=== PATIENT | female | born 1985 | race Caucasian/White ===

== ENCOUNTER 2016-10-28 20:10 | Emergency (ER) | payer BC ==
--- NOTE | 2016-10-28 20:35 | ER Document Report ---
ED Medical Screen (RME) - General Chief Complaint: Leg Pain Stated Complaint: LEFT CALF SWELLING Time Seen by Provider: 10/28/16 20:32 Notes: The patient is a 31-year-old female, past medical history LLE DVT 8 months ago, presents with increasing left calf pain and left buttocks pain that started yesterday. She said that the pain from her prior DVT started the same way. She was on a 6 month course of Xarelto and stopped it about 2 months ago after a negative DVT ultrasound. She started working out this week, but is not having any other muscular pain. Denies shortness of breath, chest pain, numbness, tingling or difficulty walking. PE: Left calf tenderness, strong pulses, tenderness over left SI joint I have greeted and performed a rapid initial assessment of this patient. A comprehensive ED assessment and evaluation of the patient, analysis of test results and completion of the medical decision making process will be conducted by additional ED providers. TRAVEL OUTSIDE OF THE [place] IN LAST 30 DAYS: No - Related Data Allergies/Adverse Reactions: No Known Allergies Allergy (Unverified 01/28/14 13:24) Past Medical History Renal/ Medical History: Denies: Hx Peritoneal Dialysis Psychiatric Medical History: Reports: Hx Depression Past Surgical History: Reports: Hx Appendectomy, Hx Section - Immunizations Hx Diphtheria, Pertussis, Tetanus Vaccination: Yes Physical Exam - Vital signs Vitals: Temp Pulse Resp BP Pulse Ox 98.3 F 53 L 18 109/82 98 10/28/16 20:15 10/28/16 20:15 10/28/16 20:15 10/28/16 20:15 10/28/16 20:15 Course - Vital Signs Vital signs: Temp Pulse Resp BP Pulse Ox 98.3 F 53 L 18 109/82 98 10/28/16 20:15 10/28/16 20:15 10/28/16 20:15 10/28/16 20:15 10/28/16 20:15
--- NOTE | 2016-10-28 20:50 | ER Document Report ---
ED Extremity Problem, Lower - General Chief Complaint: Leg Pain Stated Complaint: LEFT CALF SWELLING Time Seen by Provider: 10/28/16 20:32 Mode of Arrival: Ambulatory Information source: Patient Notes: This is a 31-year-old female with a history of left lower extremity DVT that just finished Xarelto 2 months ago (she had been treated for 6 months). Patient presents to the emergency room with left calf pain. She does state she' s been working out a lot lately. She states that she has had some left buttock pain. She denies any chest pain, shortness of breath, fever or chills. She denies any smoking or control. She denies any family history of blood clots. She denies any recent travel, trauma, long car rides. Past medical history: DVT (diagnosed February 2016 and treated with 6 months of Xarelto). The patient's risk factors at that time was control pills. Patient states that she was tested by Dr. Pierre for blood clotting and she did not have any predisposition to blood clotting. TRAVEL OUTSIDE OF THE [place] IN LAST 30 DAYS: No - HPI Patient complains to provider of: No: Altered sensation, Injury, Pain, Swelling , Other Location: Leg Occurred: Last week Where: Home Onset/Duration: Gradual Quality of pain: Dull Severity: Mild Pain Level: 1 Context: denies: Barefoot, Burn, Crush, Direct blow, Fell, Laceration, Prolonged pressure on ext, Recent immobilization, Recent surgery, Recent travel , Stubbed, Twisted, Wearing shoes, Other Recent injury: Yes - Patient has been having a new exercise routine lately: She is doing "boot camp" and spin classes. Associated symptoms: denies: Chest pain, Hurts to breath, Sweaty Exacerbated by: Nothing Relieved by: Nothing - Related Data Allergies/Adverse Reactions: No Known Allergies Allergy (Unverified 01/28/14 13:24) Past Medical History - General Information source: Patient - Social History Smoking Status: Never Smoker Cigarette use (# per day): No Chew tobacco use (# tins/day): No Frequency of alcohol use: None Drug Abuse: None Lives with: Family Family History: Reviewed & Not Pertinent Patient has suicidal ideation: No Patient has homicidal ideation: No - Past Medical History Cardiac Medical History: Reports: Hx DVT Pulmonary Medical History: Reports: None EENT Medical History: Reports: None Neurological Medical History: Reports: None Endocrine Medical History: Reports: None Renal/ Medical History: Reports: None. Denies: Hx Peritoneal Dialysis Malignancy Medical History: Reports: None GI Medical History: Reports: None Musculoskeltal Medical History: Reports None Skin Medical History: Reports None Psychiatric Medical History: Reports: Hx Depression Past Surgical History: Reports: Hx Appendectomy, Hx Section - Immunizations Hx Diphtheria, Pertussis, Tetanus Vaccination: Yes Review of Systems - Review of Systems Constitutional: denies: Chills, Fever EENT: No symptoms reported Cardiovascular: No symptoms reported Respiratory: No symptoms reported Gastrointestinal: No symptoms reported Genitourinary: No symptoms reported Female Genitourinary: No symptoms reported Musculoskeletal: See HPI Skin: No symptoms reported Hematologic/Lymphatic: No symptoms reported Neurological/Psychological: No symptoms reported Physical Exam - Vital signs Vitals: Temp Pulse Resp BP Pulse Ox 98.3 F 53 L 18 109/82 98 10/28/16 20:15 10/28/16 20:15 10/28/16 20:15 10/28/16 20:15 10/28/16 20:15 Notes: Physical exam: GENERAL: 31-year-old female, alert and oriented 3, no acute distress HEAD: Atraumatic, normocephalic. EYES: Pupils equal round and reactive to light, extraocular movements intact, sclera anicteric, conjunctiva are normal. ENT: Moist mucous membranes. NECK: Normal range of motion, supple LUNGS: Breath sounds clear to auscultation bilaterally and equal. No wheezes rales or rhonchi. HEART: Regular rate and rhythm without murmurs, rubs or gallops. ABDOMEN: Soft, normoactive bowel sounds. No tenderness to palpation. No guarding, no rebound. No masses appreciated. EXTREMITIES: Normal range of motion, no pitting or edema. No clubbing or cyanosis. NEUROLOGICAL: Cranial nerves II through XII grossly intact. Normal speech, normal gait. PSYCH: Normal mood, normal affect. SKIN: Warm, Dry, normal turgor, no rashes or lesions noted. Course - Re-evaluation Re-evalutation: 10/28/16 22:55 10/28/16 22:56 Patient is doing well right now. I have discussed the results of the ultrasound. She has recently started a rigorous exercise program and she does have symptoms of radiculopathy. She does have some pain in the left buttocks and it seems to run down the left lower extremity. I've advised her to back off the "Boot Camp" and to rest for a few days. I've advised her to return to the ER if she has persistent or worsening pain for repeat ultrasound. - Vital Signs Vital signs: Temp Pulse Resp BP Pulse Ox 98.3 F 53 L 18 109/82 98 10/28/16 20:15 10/28/16 20:15 10/28/16 20:15 10/28/16 20:15 10/28/16 20:15 - Diagnostic Test Radiology reviewed: Image reviewed, Reports reviewed - Venous Doppler shows no evidence of acute DVT Discharge - Discharge Clinical Impression: radiculopathy Condition: Stable Disposition: HOME, SELF-CARE Additional Instructions: I placed the results of the Doppler exam in the discharge summary Recommendations: For an anti-inflammatory medicine: I would first take aspirin the see if you get any relief. You could then try Tylenol if the aspirin doesn't work for pain. As we discussed, you had studies looking for blood clotting and you don't have it which is good, and ibuprofen medicines are probably okay. However, there is some association with ibuprofen-like medicines (nonsteroidal anti-inflammatory medicines) that suggests that the incidence of blood clotting is higher with these medicines. So he could try the aspirin and Tylenol first. If you're having increased swelling of the lower leg, increased pain in the lower leg: Return to the emergency room for repeat ultrasound. Sometimes, we do repeat the ultrasound and the leg to see if there is any clot propagation ( the ultrasound will sometimes miss small clots in the lower calf). Return to the ER for any chest pain or shortness of breath. There are no restrictions on activity at this time. As far as working out: I would back off on [employer] for now and start back slowly.
[2016-10-28 23:07] VITALS: BP 108/65
== END 2016-10-28 23:07 | disposition home or self-care (01) ==
LOC: ER 20:10
DX: M54.10 Radiculopathy, site unspecified (principal); M79.662 Pain in left lower leg; M25.552 Pain in left hip; Z86.718 Personal history of other venous thrombosis and embolism
CPT/HCPCS: 93971; 99283

== ENCOUNTER → 2017-09-07 | Outpatient (CLI) | payer BC ==
--- NOTE | 2017-09-07 10:18 | RADIOLOGY REPORT (SQ) ---
EXAM DESCRIPTION: VENOUS UNILATERAL LOWER COMPLETED DATE/TIME: 09/07/2017 9:24 am REASON FOR STUDY: LLE PAIN M79.609 PAIN IN UNSPECIFIED LIMB COMPARISON: 10/28/2016 TECHNIQUE: Dynamic and static yu scale and color images acquired of the left leg venous system. Se lected spectral images acquired with additional compression and augmentation maneuvers. The contralat eral common femoral vein and saphenofemoral junction were also imaged. Images stored on PACS. LIMITATIONS: None. FINDINGS: LEFT COMMON FEMORAL: Normal phasicity, compression and augmentation. No visualized echogenic material on g ray scale. No defects on color images. FEMORAL: Normal compression and augmentation. No visualized echogenic material on yu scale. No defe cts on color images. POPLITEAL: Normal compression, augmentation. No visualized echogenic material on yu scale. No defec ts on color images. CALF VESSELS: Normal compression, augmentation. No visualized echogenic material on yu scale. No de fects on color images. GSV and SSV: Normal compression, augmentation. No visualized echogenic material on yu scale. No def ects on color images. ANY DEEP VENOUS INSUFFICIENCY: Not evaluated. ANY EVIDENCE OF POPLITEAL CYST: No. OTHER: No other significant finding. RIGHT COMMON FEMORAL VEIN AND SAPHENOFEMORAL JUNCTION: Normal phasicity, compression and augmentation. No visualized echogenic material on yu scale. No de fects on color images. IMPRESSION: NO EVIDENCE OF DVT OR SVT IN THE LEFT LEG. TECHNICAL DOCUMENTATION: JOB ID: [id number] [employer]- All Rights Reserved Reading location - IP/workstation name: [email or web address]
== END ==
LOC: SP 08:39
PROVIDERS: ATTEND Physician Assistant Medical
DX: M79.605 Pain in left leg (principal); M79.89 Other specified soft tissue disorders
CPT/HCPCS: 93971

== ENCOUNTER 2018-02-18 18:32 | Emergency (ER) | payer BC ==
[2018-02-18 19:45] VITALS: BP 114/71
--- NOTE | 2018-02-18 19:49 | ER Document Report ---
ED General - General Chief Complaint: Leg Pain Stated Complaint: LEG PAIN Time Seen by Provider: 02/18/18 18:54 TRAVEL OUTSIDE OF THE [place] IN LAST 30 DAYS: No - HPI Patient complains to provider of: Left leg pain Notes: Patient has a history of blood clots within her left leg when she was on control in the past. Patient states having some pain in her lower foot numbness and tingling similar to when she had the DVT also pain swelling or calf. Patient denies any fever chills nausea vomiting diarrhea denies any recent travel denies being on any control at this time denies smoking. - Related Data Allergies/Adverse Reactions: No Known Allergies Allergy (Unverified 01/28/14 13:24) Past Medical History - Social History Smoking Status: Never Smoker Chew tobacco use (# tins/day): No Frequency of alcohol use: Occasional Drug Abuse: None Family History: Reviewed & Not Pertinent Patient has suicidal ideation: No Patient has homicidal ideation: No - Past Medical History Cardiac Medical History: Reports: Hx DVT Renal/ Medical History: Denies: Hx Peritoneal Dialysis Psychiatric Medical History: Reports: Hx Depression Past Surgical History: Reports: Hx Appendectomy, Hx Section - Immunizations Hx Diphtheria, Pertussis, Tetanus Vaccination: Yes Review of Systems - Review of Systems Constitutional: No symptoms reported EENT: No symptoms reported Cardiovascular: No symptoms reported Respiratory: No symptoms reported Gastrointestinal: No symptoms reported Genitourinary: No symptoms reported Female Genitourinary: No symptoms reported Musculoskeletal: Other - Leg pain Skin: No symptoms reported Hematologic/Lymphatic: No symptoms reported Neurological/Psychological: No symptoms reported Physical Exam - Vital signs Vitals: Temp Pulse Resp BP Pulse Ox 98.0 F 74 16 124/80 100 02/18/18 18:36 02/18/18 18:36 02/18/18 18:36 02/18/18 18:36 02/18/18 18:36 Interpretation: Normal - General General appearance: Appears well, Alert - HEENT Head: Normocephalic, Atraumatic Eyes: Normal Pupils: PERRL - Respiratory Respiratory status: No respiratory distress Chest status: Nontender Breath sounds: Normal Chest palpation: Normal - Cardiovascular Rhythm: Regular Heart sounds: Normal auscultation Murmur: No - Abdominal Inspection: Normal Distension: No distension Bowel sounds: Normal Tenderness: Nontender Organomegaly: No organomegaly - Back Back: Normal, Nontender - Extremities General upper extremity: Normal inspection, Nontender, Normal color, Normal ROM , Normal temperature General lower extremity: Normal inspection, Edema, Normal color, Normal ROM, Normal temperature, Normal weight bearing. No: Flakito's sign - Neurological Neuro grossly intact: Yes Cognition: Normal Orientation: AAOx4 [place] Coma Scale Eye Opening: Spontaneous [place] Coma Scale Verbal: Oriented [place] Coma Scale Motor: Obeys Commands Jacques Coma Scale Total: 15 Speech: Normal Motor strength normal: LUE, RUE, LLE, RLE Sensory: Normal - Psychological Associated symptoms: Normal affect, Normal mood - Skin Skin Temperature: Warm Skin Moisture: Dry Skin Color: Normal Course - Re-evaluation Re-evalutation: 02/18/18 20:56 Doppler negative for or DVT. Patient was given instructions on how to help with any edema of her legs. Patient states understanding will be discharged home - Vital Signs Vital signs: Temp Pulse Resp BP Pulse Ox 98.0 F 74 16 124/80 100 02/18/18 18:36 02/18/18 18:36 02/18/18 18:36 02/18/18 18:36 02/18/18 18:36 Discharge - Discharge Clinical Impression: Leg pain Qualifiers: Laterality: unspecified laterality Qualified Code(s): M79.606 - Pain in leg, unspecified Condition: Good Disposition: HOME, SELF-CARE Instructions: Leg Pain Nonspecific ([facility]) Additional Instructions: Your evaluation does not show any signs of blood clots in your leg. Please make sure she elevates her leg to help out with any swelling at nighttime. Would recommend popping her feet at night also help out with any swelling may also have a local massage her legs to help remove fluid around to decrease her swelling. Follow-up with your primary care physician as needed return to ER for any other concerns. Referrals: OLEKSANDR SOMMERS MD [Primary Care Provider] - Follow up as needed
--- NOTE | 2018-02-19 09:44 | XCELERA REPORT ---
[address] [place] [facility] [address] Lower Extremity Venous Evaluation Procedure: Color flow and duplex imaging of the veins of the left lower extremity as well as the right Common Femoral vein. Right Sided Venous Evaluation The right common femoral vein is fully compressible. Spontaneous and phasic flow is present in the right common femoral vein. Left Sided Venous Evaluation Normal vessel filling wall to wall, compression and augmentation as well as Colour flow down to the infrageniculate veins. Interpretation Summary No duplex evidence of DVT or obstruction in the left lower extremity nor in the right Common Femoral vein. Name: ROBINSON BEGUM Age: 32 yrs Gender: Female : 1985 Patient Status: Emergency Patient Location: ER Study Date: 02/18/2018 07:03 PM Reason For Study: hx of clot left Ordering Physician: HANK SANTIAGO Performed By: Tatiana Weber : HANK SANTIAGO > Uzair Peterson
== END 2018-02-18 19:46 | disposition home or self-care (01) ==
LOC: ER 18:32
DX: M79.672 Pain in left foot (principal); R20.0 Anesthesia of skin; R20.2 Paresthesia of skin; Z86.718 Personal history of other venous thrombosis and embolism
CPT/HCPCS: 93971; 99283